=== PATIENT | female | born 1990 | race Caucasian/White ===

== ENCOUNTER 2018-02-01 17:26 | Emergency (ER) | payer OTHER ==
[2018-02-01 17:36] VITALS: TEMP 98.7
--- NOTE | 2018-02-01 19:07 | C.PDOC ---
History Of Present Illness 27 year old female patient presents to the emergency room c/o left ear pain. Patient denies rash, fever, chills, vomiting, diarrhea, nausea, eye pain and headache. Time Seen by Provider: 02/01/18 18:18 Chief Complaint (Nursing): ENT Problem History Per: Patient History/Exam Limitations: None Onset/Duration Of Symptoms: Days Current Symptoms Are (Timing): Still Present Past Medical History Reviewed: Historical Data, Nursing Documentation, Vital Signs Vital Signs: Last Vital Signs Temp 98.7 F 02/01/18 17:32 Pulse 66 02/01/18 17:32 Resp 18 02/01/18 17:32 BP 138/86 02/01/18 17:32 Pulse Ox 97 02/01/18 17:32 Family History: States: No Known Family Hx - Social History Hx Alcohol Use: No Hx Substance Use: No - Immunization History Hx Tetanus Toxoid Vaccination: No Hx Influenza Vaccination: No Hx Pneumococcal Vaccination: No Review Of Systems Except As Marked, All Systems Reviewed And Found Negative. Constitutional: Negative for: Fever, Chills Eyes: Negative for: Pain ENT: Positive for: Ear Pain (left ) Gastrointestinal: Negative for: Nausea, Vomiting, Diarrhea Skin: Negative for: Rash Neurological: Negative for: Headache Physical Exam - Physical Exam Appears: Non-toxic, No Acute Distress Skin: Warm, Dry, No Rash Head: Atraumatic, Normacephalic Eye(s): bilateral: Normal Inspection, PERRL, EOMI Ear(s): Bilateral: Normal Oral Mucosa: Moist Throat: Normal, No Erythema, No Exudate Neck: Normal ROM, Supple Lymphatic: Normal Exam Chest: Symmetrical Cardiovascular: Rhythm Regular, No Friction Rub, No Murmur Respiratory: Normal Breath Sounds, No Rales, No Rhonchi, No Stridor, No Wheezing Gastrointestinal/Abdominal: Bowel Sounds (active), Soft, No Tenderness Back: Normal Inspection, No CVA Tenderness Extremity: Normal ROM, No Swelling Neurological/Psych: Oriented x3, Normal Speech Gait: Steady ED Course And Treatment O2 Sat by Pulse Oximetry: 97 (RA) Pulse Ox Interpretation: Normal Medical Decision Making Medical Decision Making: Plans: -- [place] -- Ibuprofen -- prednisone Disposition - Disposition Referrals: [facility] at [facility] [Outside] Disposition: HOME/ ROUTINE Disposition Time: 19:30 Condition: STABLE Additional Instructions: Follow up with the medical doctor within 1-2 days. Return if worsened. Prescriptions: Loratadine [Claritin] 10 mg PO DAILY #10 tab Neomycin/Polymyxin/Hydrocortis [Cortisporin Otic Susp] 3 drop TOP TID #1 bottle predniSONE [Prednisone] 20 mg PO BID #10 tab Instructions: Viral Upper Respiratory Infection, Adult (DC) Forms: [employer] (Sinhala) - Clinical Impression Clinical Impression: Upper respiratory infection - PA / COLLECTIONS MANAGER / Resident Statement MD/DO has reviewed & agrees with the documentation as recorded. - Scribe Statement The provider has reviewed the documentation as recorded by the Colin Engel Do All medical record entries made by the Sandraibe were at my direction and personally dictated by me. I have reviewed the chart and agree that the record accurately reflects my personal performance of the history, physical exam, medical decision making, and the department course for this patient. I have also personally directed, reviewed, and agree with the discharge instructions and disposition.
[2018-02-01 19:40] VITALS: BP 125/85; PULSE 72; RESP 16
[2018-02-01 21:07] VITALS: O2SAT 97
== END 2018-02-01 19:39 | disposition home or self-care (01) ==
LOC: C.ER 17:26
DX: J06.9 Acute upper respiratory infection, unspecified (principal)

== ENCOUNTER 2018-04-03 09:58 | Emergency (ER) | payer OTHER ==
--- NOTE | 2018-04-03 11:43 | CT ---
Date of service: 04/03/2018 PROCEDURE: CT HEAD WITHOUT CONTRAST. HISTORY: possible mastoiditis COMPARISON: None available TECHNIQUE: Axial computed tomography images were obtained through the head/brain without intravenous contrast. Radiation dose: Total exam DLP = 1093.5 mGy-cm. This CT exam was performed using one or more of the following dose reduction techniques: Automated exposure control, adjustment of the mA and/or kV according to patient size, and/or use of iterative reconstruction technique. FINDINGS: HEMORRHAGE: No intracranial hemorrhage. BRAIN: No mass effect or edema. No atrophy or chronic microvascular ischemic changes. VENTRICLES: No hydrocephalus. CALVARIUM: Unremarkable. PARANASAL SINUSES: Partial visualization of the paranasal sinuses demonstrates marked mucosal thickening of the ethmoid air cells, the right maxillary sinus, the sphenoid sinuses, and the right frontal sinus. MASTOID AIR CELLS: Fluid is noted within the left mastoid air cells. Incompletely imaged right mastoid air cells appear clear. OTHER FINDINGS: None. IMPRESSION: No acute intracranial pathology identified. Fluid is noted within the left mastoid air cells; correlate for mastoiditis. Incompletely imaged right mastoid air cells appear clear. Partial visualization of the paranasal sinuses demonstrates marked mucosal thickening of the ethmoid air cells, the right maxillary sinus, the sphenoid sinuses, and the right frontal sinus.
--- NOTE | 2018-04-03 11:57 | C.PDOC ---
History Of Present Illness 28 y/o female presents to the ED complaining of left ear pain associated with yellow drainage since yesterday. For the last 7 days patient has had a cough, runny nose, and nasal discharge. No fevers. No neck stiffness. Yesterday she woke up with severe ear pain and drainage. She tried taking Motrin without any relief. Time Seen by Provider: 04/03/18 10:04 Chief Complaint (Nursing): ENT Problem History Per: Patient History/Exam Limitations: None Onset/Duration Of Symptoms: Days (2) Current Symptoms Are (Timing): Still Present Quality (Ear): Pain W/Touch, Discharge Symptoms Have Been: Continuous Past Medical History Reviewed: Historical Data, Nursing Documentation, Vital Signs Vital Signs: Last Vital Signs Temp 98.8 F 04/03/18 10:00 Pulse 101 H 04/03/18 10:00 Resp 20 04/03/18 10:00 BP 125/82 04/03/18 10:00 Pulse Ox 96 04/03/18 10:00 Surgical History: No Surg Hx Family History: States: No Known Family Hx - Social History Hx Tobacco Use: No Hx Alcohol Use: No Hx Substance Use: No - Immunization History Hx Tetanus Toxoid Vaccination: No Hx Influenza Vaccination: No Hx Pneumococcal Vaccination: No Review Of Systems Constitutional: Negative for: Fever, Chills Eyes: Negative for: Vision Change ENT: Positive for: Ear Pain, Ear Discharge, Nose Congestion Cardiovascular: Negative for: Chest Pain Respiratory: Positive for: Cough. Negative for: Shortness of Breath Gastrointestinal: Negative for: Nausea, Vomiting, Diarrhea Musculoskeletal: Negative for: Back Pain Skin: Negative for: Rash Neurological: Negative for: Weakness, Numbness, Headache, Dizziness Physical Exam - Physical Exam Appears: Non-toxic, No Acute Distress Skin: Normal Color, Warm, No Rash, Other (Appears flushed) Head: Atraumatic, Normacephalic, Tenderness (on palpation of sinuses) Eye(s): bilateral: Normal Inspection (with increased tearing), PERRL, EOMI Ear(s): Left: Other (Left ear canal is edematous with discharge, and likely TM perforation, (+) mastoid tenderness), Right: Normal Nose: Discharge (Moderate nasal congestion) Throat: Normal, No Erythema, No Exudate Neck: Normal ROM, Supple Chest: Symmetrical Cardiovascular: Rhythm Regular, No Murmur Respiratory: No Rales, No Rhonchi, No Wheezing, Other (Lungs clear bilaterally) Extremity: Bilateral: Atraumatic, Normal ROM (x 4) Neurological/Psych: Oriented x3, Normal Speech, Normal Cranial Nerves, Other (No focal deficits) ED Course And Treatment O2 Sat by Pulse Oximetry: 96 (RA) Pulse Ox Interpretation: Normal - CT Scan/US Head CT Other Rad Studies (CT/US): Read By Radiologist, Radiology Report Reviewed CT/US Interpretation: Accession No. : [id number]. Patient Name / ID : HARRISON [id number] / [id number]. Exam Date : 04/03/2018 11:20:21 ( Approved ). Study Comment : Sex / Age : F / 28Y. Creator : Fatimah Snell. Dictator : Jacqueline Montiel MD. Road Sign Installer : Professor Of Biostatistics : Jacqueline Montiel MD. Approver2 : Report Date : 04/03/2018 11:26:59. My Comment : . Date of service: 04/03/2018. PROCEDURE: CT HEAD WITHOUT CONTRAST. HISTORY: possible mastoiditis. COMPARISON: None available. TECHNIQUE: Axial computed tomography images were obtained through the head/brain without intravenous contrast. Radiation dose: Total exam DLP = 1093.5 mGy-cm. This CT exam was performed using one or more of the following dose reduction techniques: Automated exposure control, adjustment of the mA and/or kV according to patient size, and/or use of iterative reconstruction technique. FINDINGS: HEMORRHAGE: No intracranial hemorrhage. BRAIN: No mass effect or edema. No atrophy or chronic microvascular ischemic changes. VENTRICLES: No hydrocephalus. CALVARIUM: Unremarkable. PARANASAL SINUSES: Partial visualization of the paranasal sinuses demonstrates marked mucosal thickening of the ethmoid air cells, the right maxillary sinus, the sphenoid sinuses, and the right frontal sinus. MASTOID AIR CELLS: Fluid is noted within the left mastoid air cells. Incompletely imaged right mastoid air cells appear clear. OTHER FINDINGS: None. IMPRESSION: No acute intracranial pathology identified. Fluid is noted within the left mastoid air cells; correlate for mastoiditis. Incompletely imaged right mastoid air cells appear clear. Partial visualization of the paranasal sinuses demonstrates marked mucosal thickening of the ethmoid air cells, the right maxillary sinus, the sphenoid sinuses, and the right frontal sinus. Medical Decision Making Medical Decision Making: Impression: Left ear pain/drainage, Cough, r/o mastoiditis Plan: - Tramadol and Motrin given for pain - Pending CT Head CT reviewed, shows left mastoiditis. Will treat patient with antibiotics. Disposition Counseled Patient/Family Regarding: Studies Performed, Diagnosis, Need For Followup, Rx Given - Disposition Referrals: Oliverio Corley MD [Staff Provider] - [facility] at [facility] [Outside] Disposition: HOME/ ROUTINE Disposition Time: 12:45 Condition: STABLE Prescriptions: Amoxicillin/Clavulanate [Augmentin 875 MG-125 MG] 1 tab PO BID #14 tab Ibuprofen [Motrin] 600 mg PO TID #15 tab traMADol/Acetaminophen [Ultracet 37.5/325 mg] 1 tab PO TID PRN #15 tab PRN Reason: pain Instructions: Ear Infections (Otitis Media) (DC) Forms: [employer] (Indonesian) Print Language: GREENLANDIC - POA Present On Arrival: None - Clinical Impression Clinical Impression: Upper respiratory infection, Otitis media, Perforated tympanic membrane - Scribe Statement The provider has reviewed the documentation as recorded by the Colin Viera Provider Attestation: All medical record entries made by the Colin were at my direction and personally dictated by me. I have reviewed the chart and agree that the record accurately reflects my personal performance of the history, physical exam, medical decision making, and the department course for this patient. I have also personally directed, reviewed, and agree with the discharge instructions and disposition.
[2018-04-03 12:09] VITALS: BP 102/70; PULSE 80; RESP 18; TEMP 98.7
[2018-04-03 12:48] VITALS: O2SAT 96
== END 2018-04-03 12:52 | disposition home or self-care (01) ==
LOC: C.ER 09:58
DX: J06.9 Acute upper respiratory infection, unspecified (principal); H66.92 Otitis media, unspecified, left ear; H72.92 Unspecified perforation of tympanic membrane, left ear

== ENCOUNTER 2018-04-04 11:38 | Observation (INO) | payer OTHER ==
[2018-04-04 11:51] VITALS: BMI 29.0
[2018-04-04] MEDS ORDERED: Sodium Chloride 0.9% 1,000 ML IV ONE (13:09)
--- NOTE | 2018-04-04 13:47 | C.PDOC ---
History Of Present Illness 28 y/o female sent to ED by Dr Corley for further evaluation of ear pain. pt seen by him yesterday and started on amoxicilin, last took motrin 630 am. She reports persistent pain despite taking the antibiotics. No other complaints. Time Seen by Provider: 04/04/18 11:58 Chief Complaint (Nursing): ENT Problem History Per: Patient History/Exam Limitations: no limitations Current Symptoms Are (Timing): Still Present Past Medical History Reviewed: Historical Data, Nursing Documentation, Vital Signs Vital Signs: Last Vital Signs Temp 98.3 F 04/04/18 11:51 Pulse 84 04/04/18 11:51 Resp 18 04/04/18 11:51 BP 102/77 04/04/18 11:51 Pulse Ox 98 04/04/18 11:51 - Medical History PMH: No Chronic Diseases Surgical History: No Surg Hx Family History: States: Unknown Family Hx - Social History Hx Tobacco Use: No Hx Alcohol Use: No Hx Substance Use: No - Immunization History Hx Tetanus Toxoid Vaccination: No Hx Influenza Vaccination: No Hx Pneumococcal Vaccination: No Review Of Systems Constitutional: Negative for: Fever, Chills ENT: Positive for: Ear Pain Cardiovascular: Negative for: Chest Pain Respiratory: Negative for: Cough, Shortness of Breath Gastrointestinal: Negative for: Nausea, Vomiting Musculoskeletal: Negative for: Neck Pain Skin: Negative for: Rash Neurological: Negative for: Headache, Dizziness Physical Exam - Physical Exam Appears: Non-toxic, No Acute Distress Skin: No Rash Head: Atraumatic, Normacephalic Eye(s): right: Normal Inspection, left: Other (Exquisitely tender around external left ear; Left TM appears erythematous, with left mastoid tenderness, left submandibular tenderness; limited exam as patient is pushing examiner away) Oral Mucosa: Moist Throat: Normal (Pharynx is clear), No Erythema, No Drooling Neck: Supple Chest: Symmetrical Cardiovascular: Rhythm Regular, No Murmur Respiratory: No Rales, No Rhonchi, No Wheezing, Other (Lungs clear bilaterally) Extremity: Normal ROM (x 4), No Deformity, No Swelling Neurological/Psych: Oriented x3, Normal Speech, Normal Cognition ED Course And Treatment - Laboratory Results Result Diagrams: 04/04/18 13:49 04/04/18 13:49 O2 Sat by Pulse Oximetry: 98 (RA) Pulse Ox Interpretation: Normal - CT Scan/US CT TEMPORAL BONES Other Rad Studies (CT/US): Read By Radiologist, Radiology Report Reviewed CT/US Interpretation: IMPRESSION: Moderate destructive changes are identified at the left mastoid air cell complex mid and inferior levels. There near complete opacification of the left middle ear cavity without bony destruction. The overall pattern compatible otomastoiditis. Cholesteatoma or other destructive process including mastoiditis at the left mastoids is not excluded. Follow-up MRI with and without contrast is advised for added characterization. Unremarkable right mastoid air cell complex. Medical Decision Making Medical Decision Making: discussed with Dr Butler, will admit to her service. Disposition Discussed With .: Sue Butler Doctor Will See Patient In The: Hospital - Disposition Disposition: HOSPITALIZED Disposition Time: 15:43 - Clinical Impression Clinical Impression: Otitis media of left ear - PA / COATER OPERATOR / Resident Statement MD/DO has reviewed & agrees with the documentation as recorded. - Scribe Statement The provider has reviewed the documentation as recorded by the Colin Viera All medical record entries made by the Colin were at my direction and personal ly dictated by me. I have reviewed the chart and agree that the record accurately reflects my personal performance of the history, physical exam, medical decision making, and the department course for this patient. I have also personally directed, reviewed, and agree with the discharge instructions and disposition.
[2018-04-04 13:52] LABS: BASO % 0.2 % (0.0-2.0); EOS % 0.4 % (0.0-4.0); HEMOGLOBIN 14.3 g/dL (11.0-16.0); LYMPH % 15.6 % (20.0-40.0); MEAN CELL VOLUME 94.9 fL (81.0-99.0); MEAN CORPUSCULAR HEMOGLOBIN 32.5 pg (27.0-31.0); MEAN CORPUSCULAR HGB CONC 34.3 g/dL (33.0-37.0); MEAN PLATELET VOLUME 10.2 fL (7.2-11.7); MONO # 1.8 K/uL (0.0-0.8); MONO % 13.7 % (0.0-10.0); NEUT % 70.1 % (50.0-75.0); NRBC % 0.1 % (0.0-2.0); RBC 4.39 Mil/uL (3.80-5.20); RED CELL DISTRIBUTION WIDTH 13.1 % (11.5-14.5); WHITE BLOOD COUNT 12.8 K/uL (4.8-10.8)
[2018-04-04] MEDS ORDERED: Sodium Chloride 0.9% 1,000 ML ONE (13:54)
[2018-04-04 14:08] LABS: ALB/GLOB RATIO 1.4 (1.0-2.1); ALBUMIN 4.6 g/dL (3.5-5.0); ALT/SGPT 39 U/L (9-52); AST/SGOT 51 U/L (14-36); BLOOD UREA NITROGEN 7 mg/dL (7-17); CALCIUM 9.2 mg/dl (8.6-10.4); GFR NON-AFRICAN AMERICAN > 60
[2018-04-04 14:10] LABS: SQUAMOUS EPITHIAL 6 /hpf (0-5); URINE BACTERIA OCC (<OCC); URINE BILIRUBIN NEGATIVE (NEGATIVE); URINE BLOOD 1+ (NEGATIVE); URINE CLARITY Hazy (Clear); URINE COLOR Amber (YELLOW); URINE GLUCOSE (UA) NORMAL (Normal); URINE LEUKOCYTE ESTERASE NEG Leu/uL (Negative); URINE PROTEIN 1+ mg/dL (NEGATIVE)
[2018-04-04] MEDS ORDERED: Piperacillin/Tazobact 3.375 GM in Sodium Chloride 100 ML IVPB STA (14:29)
[2018-04-04] MEDS ORDERED: Piperacillin/Tazobact 3.375 gm 100 ML IVPB ONE (14:38)
--- NOTE | 2018-04-04 15:46 | CT ---
Date of service: 04/04/2018 PROCEDURE: CT OF THE TEMPORAL BONES WITHOUT CONTRAST HISTORY: left mastoid tenderness COMPARISON: None available. TECHNIQUE: High resolution axial images of the temporal bones were obtained. Coronal and sagittal reformats were generated. Radiation dose: Total exam DLP = 656.29 mGy-cm. This CT exam was performed using one or more of the following dose reduction techniques: Automated exposure control, adjustment of the mA and/or kV according to patient size, and/or use of iterative reconstruction technique. FINDINGS: RIGHT TEMPORAL BONE: RIGHT MIDDLE EAR: Normal appearing ossicular chain, aeration and development. No soft tissue or fluid collection. The scutum appears intact. The oval and round window niches appear intact. RIGHT INNER EAR: Cochlea: Normal. Semicircular canals: Normal. RIGHT MASTOID AIR CELLS: Normal. RIGHT INTERNAL AUDITORY CANAL: Normal in course, caliber, contour and development. No sclerotic or erosive changes related. RIGHT EXTERNAL AUDITORY CANAL: Normal in course, caliber, contour, development and aeration. RIGHT VESTIBULAR AND COCHLEAR AQUEDUCT: Normal. OTHER FINDINGS: None. LEFT TEMPORAL BONE: LEFT MIDDLE EAR: Mildly ossicular chain appears intact as well as the scutum, there is abnormal opacification of the lumen of the middle ear cavity which is nearly completely opacified. No overt pattern to suggest cholesteatoma. Soft tissue is not excluded within the normally aerated middle ear cavity nevertheless. Fluid is clearly present in some areas. LEFT INNER EAR: Cochlea: Normal. Semicircular canals: Normal. LEFT MASTOID AIR CELLS: Multifocal opacification is appreciated primarily mid inferior mastoid air cells with some air cells confluent suggestive of erosive changes. Mastoiditis or even cholesteatoma are not excluded. MRI with without contrast can be utilized for added characterization of the middle ear cavity and affected mastoid air cells. No overt reactive changes seen posterior and lateral to the mastoid air cells within the local extracranial soft tissues. LEFT INTERNAL AUDITORY CANAL: Normal. LEFT EXTERNAL AUDITORY CANAL: Normal. LEFT VESTIBULAR AND COCHLEAR AQUEDUCTS: Normal. OTHER FINDINGS: None. IMPRESSION: Moderate destructive changes are identified at the left mastoid air cell complex mid and inferior levels. There near complete opacification of the left middle ear cavity without bony destruction. The overall pattern compatible otomastoiditis. Cholesteatoma or other destructive process including mastoiditis at the left mastoids is not excluded. Follow-up MRI with and without contrast is advised for added characterization. Unremarkable right mastoid air cell complex.
--- NOTE | 2018-04-04 16:53 | CP.PCM.HP ---
History of Present Illness - History of Present Illness History of Present Illness: History and physical for Hospitalist service (Dr. Butler) HPI: Patient is a 28 year old female who presents for 3 to 4 day history of left ear pain with yellow, bloody purulent drainage with subjective fevers, hearing loss and buzzing in her left ear. She states that for the past 3 to 4 days, she has pain when she chews and bites down and has only been drinking liquids. She has not had any food in 3 days. She states she felt nauseated when she tried to eatand 3 episodes of nonbloody nonbilious vomiting 3 days ago, with no episodes since. Patient was seen in the ED for similar complaints yesterday and was discharged on Amoxicillin. CT head from yesterday 04/03/18 revealed no intracranial pathology, fluid in left mastoid air cells. She was seen by ENT Dr. Corley today who sent her in for tympanostomy. She denies headache, dizziness, blurry vision, chest pain, shortness of breath, abdominal pain, diarrhea, constipation, dysuria, leg swelling or leg pain. PMH: none PSH: none Home meds: Amoxicillin Allergies: NKDA Family hx: Father had RI at age 38 Social hx: denies smoking, alcohol or drug use. Patient is from [facility]. Immunizations up to date as per patient Full code PMD: none Present on Admission - Present on Admission Any Indicators Present on Admission: No Review of Systems - Constitutional Constitutional: Fever. absent: Chills, Headache - EENT Eyes: absent: Blurred Vision, Change in Vision Ears: Decreased Hearing, Ear Pain, Abnormal Hearing. absent: Dizziness Nose/Mouth/Throat: absent: Epistaxis, Change in Voice, Hoarsness, Sore Throat - Cardiovascular Cardiovascular: absent: Chest Pain, Dyspnea, Lightheadedness, Palpitations - Respiratory Respiratory: absent: Cough, Dyspnea, Chest Congestion - Gastrointestinal Gastrointestinal: Vomiting. absent: Diarrhea, Nausea - Genitourinary Genitourinary: absent: Difficulty Urinating, Dysuria - Musculoskeletal Musculoskeletal: absent: Back Pain, Numbness, Stiffness - Neurological Neurological: absent: Confusion, Numbness, Headaches, Paresthesias - Psychiatric Psychiatric: absent: Anxiety, Depression Past Patient History - Past Social History Smoking Status: Never Smoked - PSYCHIATRIC Hx Substance Use: No - SURGICAL HISTORY Hx Surgeries: No - ANESTHESIA Hx Anesthesia: No Meds Allergies/Adverse Reactions: Allergies Allergy/AdvReac Type Severity Reaction Status Date / Time No Known Allergies Allergy Verified 04/04/18 11:50 Physical Exam - Constitutional Appears: Well, No Acute Distress - Head Exam Head Exam: ATRAUMATIC, NORMOCEPHALIC - Eye Exam Eye Exam: EOMI, PERRL - ENT Exam ENT Exam: Mucous Membranes Moist Additional comments: Left ear: Yellow drainage from ear canal with marked tenderness on left tragus and left mastoid. Marked erythema swelling inside ear canal. Right ear: no drainage, no tenderness. Unable to visualize throat clearly, since pain with opening mouth - Expanded ENT Exam Expanded Ear exam: External Canal Tenderness TM/Canal Exam: Bulging: Left, Canal Discharge: Left, Canal Tenderness: Left, Effusion: Left, Erythema: Left, Mastoid Tenderness: Left Mouth exam: tongue normal. absent: drooling, dry mucosa, laceration - Neck Exam Neck exam: Positive for: Full Rom. Negative for: Tenderness, Thyromegaly - Respiratory Exam Respiratory Exam: Clear to Auscultation Bilateral, NORMAL BREATHING PATTERN. absent: Rales, Rhonchi, Wheezes, Respiratory Distress, Stridor - Cardiovascular Exam Cardiovascular Exam: REGULAR RHYTHM, +S1, +S2. absent: Gallop, Rubs, Systolic Murmur - GI/Abdominal Exam GI & Abdominal Exam: Normal Bowel Sounds, Soft. absent: Distended, Firm, Guarding, Tenderness - Extremities Exam Extremities exam: Positive for: pedal pulses present. Negative for: calf tenderness, pedal edema - Back Exam Back exam: absent: CVA tenderness (L), CVA tenderness (R) - Neurological Exam Neurological exam: Alert, Oriented x3 - Skin Skin Exam: Dry, Intact, Warm Results - Vital Signs Recent Vital Signs: Last Vital Signs Temp 99.1 F 04/04/18 15:55 Pulse 88 04/04/18 15:55 Resp 20 04/04/18 15:55 BP 117/70 04/04/18 15:55 Pulse Ox 98 04/04/18 16:31 - Labs Result Diagrams: 04/04/18 13:49 04/04/18 13:49 Labs: Laboratory Results - last 24 hr 04/04/18 04/04/18 04/04/18 13:49 13:49 13:59 WBC 12.8 H RBC 4.39 Hgb 14.3 Hct 41.7 MCV 94.9 MCH 32.5 H MCHC 34.3 RDW 13.1 Plt Count 286 MPV 10.2 Neut % (Auto) 70.1 Lymph % (Auto) 15.6 L [place] % (Auto) 13.7 H Eos % (Auto) 0.4 Baso % (Auto) 0.2 Neut # (Auto) 9.0 H Lymph # (Auto) 2.0 [place] # (Auto) 1.8 H Eos # (Auto) 0.0 Baso # (Auto) 0.0 Sodium 138 Potassium 3.6 Chloride 101 Carbon Dioxide 27 Anion Gap 14 BUN 7 Creatinine 0.7 Est GFR ( Amer) > 60 Est GFR (Non-Af Amer) > 60 Random Glucose 90 Calcium 9.2 Total Bilirubin 0.8 AST 51 H ALT 39 Alkaline Phosphatase 61 Total Protein 8.1 Albumin 4.6 Globulin 3.4 Albumin/Globulin Ratio 1.4 Urine Color Melina Urine Clarity Hazy Urine pH 5.0 Ur Specific Epps 1.030 Urine Protein 1+ H Urine Glucose (UA) Normal Urine Ketones 1+ H Urine Blood 1+ H Urine Nitrate Negative Urine Bilirubin Negative Urine Urobilinogen 2.0 H Ur Leukocyte Esterase Neg Urine WBC (Auto) 12 H Urine RBC (Auto) 7 H Ur Squamous Epith Cells 6 H Urine Bacteria Occ H Assessment & Plan - Assessment and Plan (Free Text) Assessment: 28 year old female who presents for left ear purulent drainage, consistent with otitis media/mastoiditis. Plan for tympanostomy with Dr. Corley tomorrow. Plan: Otitis media/Mastoiditis f/u EKG, CXR ID Dr. Vigil consulted, help appreciated Received Zosyn in ED Blood cultures, urine culture pending Continue Zosyn 3.375g IV Q6 f/u A1c, coags ENT Dr. Corley on board Keep NPO for tympanostomywith ENT Dr. Corley CT Internal auditory canal: moderate destructive changes at left mastoid air cell complex mid and inferior levels. Near complete opacification of left middle ear cavity without bony destructive changes. Otomastoiditis. As per Dr. Corley, no need for further imaging with MRI at this time. Recommmended Decadron 10mg IV x1 Decadron 10mg IVx1 given Febrile to 100.1 White count 12.8 Zosyn 3.375g Q6 NS IV fluids @ 100cc/hr IV NPO after midnight Abnormal UA UA 1+ blood, 1+ ketones, neg nitrates, neg LEs f/u UDS, urine culture f/u A1c Prophylaxis SCDs Heparin held for surgery tomorrow Keep NPO after midnight Case discussed with Dr. Luke Steven, PGY1
[2018-04-04] MEDS ORDERED: Dexamethasone 4 mg/1 ml IVP ONE ×2 (17:19→18:45)
[2018-04-04] MEDS: Sodium Chloride 0.9% 1,000 ML IV SCH (17:52)
[2018-04-04] MEDS: Piperacill/Tazo 3.375gm in Dex 3.375 GM/50 ML BAG IVPB SCH (19:23)
--- NOTE | 2018-04-04 19:33 | CP.PCM.CON ---
History of Present Illness - History of Present Illness History of Present Illness: 28 year old female who presents for 3 to 4 day history of left ear pain with yellow, bloody purulent drainage with subjective fevers, hearing loss and buzzing in her left ear. Patient was seen in the ED for similar complaints yesterday and was discharged on Amoxicillin. CT head from yesterday 04/03/18 revealed no intracranial pathology, fluid in left mastoid air cells. She was seen by ENT Dr. Corley today who sent her in for tympanostomy. ID consulted for antibiotic managment PMH: none PSH: none Allergies: NKDA Family hx: Father had [place] at age 38 Social hx: neg Review of Systems - Review of Systems All systems: reviewed and no additional remarkable complaints except - Constitutional Constitutional: Chills, Fever, Malaise - EENT Eyes: absent: Blind Spots, Blurred Vision, Change in Vision, Decreased Night Vision, Diplopia, Discharge, Dry Eye, Exophthalmos, Floaters, Irritation, Itchy Eyes, Loss of Peripheral Vision, Pain, Photophobia, Requires Corrective Lenses, Sees Flashes, Spots in Vision, Tunnel Vision, Other Visual Disturbances, Loss of Vision, Other Ears: As Per HPI Nose/Mouth/Throat: absent: As Per HPI, Epistaxis, Nasal Congestion, Nasal Discharge, Nasal Obstruction, Nasal Trauma, Nose Pain, Post Nasal Drip, Sinus Pa in, Sinus Pressure, Bleeding Gums, Change in Voice, Dental Pain, Dry Mouth, Dysphagia, Halitosis, Hoarsness, Lip Swelling, Mouth Lesions, Mouth Pain, Odynophagia, Sore Throat, Throat Swelling, Tongue Swelling, Facial Pain, Neck Pain, Neck Mass, Other - Breasts Breasts: absent: As Per HPI, Change in Shape, Mass, Pain, Nipple Discharge, Nipple Inversion, Skin Changes, Swelling, Other - Cardiovascular Cardiovascular: absent: As Per HPI, Acrocyanosis, Chest Pain, Chest Pain at Rest, Chest Pain with Activity, Claudication, Diaphoresis, Dyspnea, Dyspnea on Exertion, Edema, Irregular Heart Rhythm, Pain Radiating to Arm/Neck/Jaw, Leg Edema, Leg Ulcers, Lightheadedness, Orthopnea, Palpitations, Paroxysmal Nocturnal Dyspnea, Pedal Edema, Radiating Pain, Rapid Heart Rate, Slow Heart Rate, Syncope, Other - Respiratory Respiratory: absent: As Per HPI, Cough, Dyspnea, Hemoptysis, Dyspnea on Exertion, Wheezing, Snoring, Stridor, Pain on Inspiration, Chest Congestion, Excessive Mucous Production, Change in Mucous Color, Pain with Coughing, Other - Gastrointestinal Gastrointestinal: absent: As Per HPI, Abdominal Pain, Belching, Bloating, Change in Bowel Habits, Change in Stool Character, Coffee Ground Emesis, Constipation, Cramping, Diarrhea, Dyspepsia, Dysphagia, Early Satiety, Excessive Flatus, Fecal Incontinence, Heartburn, Hematemesis, Hematochezia, Loose Stools, Melena, Nausea, Odynophagia, Temesmus, Vomiting, Other - Genitourinary Genitourinary: absent: As Per HPI, Change in Urinary Stream, Difficulty Urinating, Dysuria, Flank Pain, Hematuria, Pyuria, Nocturia, Urinary Incontinence, Urinary Frequency, Urinary Hesitance, Urinary Urgency, Voiding Freq/Small Amts, Freq UTI, Hx Renal/Bladder Calculi, Hx /Renal Surgery, Bladder Distension, Other - Reproductive: Female Reproductive:Female: absent: As Per HPI, Amenorrhea, Amenorrhea/ Control, Currently Menstual, Cycle <21 Days, Cycle >35 Days, Cycle Variable, Menses 1-7 Days, Menses >/= 8 Days, Menses Variable, Cycle > 4 Weeks Between, No Menses for 6 Months, Heavy Menses, Light Menses, Normal Menses, Spotting Between Cycles, S/P Hysterectomy, Menopausal, Post Menopausal, Premenarche, Abnormal Vaginal Bleeding, Dysmenorrhea, Dyspareunia, Genital Lesions, Genital Pruritis, Pelvic Pain, Prolapse Symptoms, Sexual Dysfunction, Vaginal Discharge, Vaginal Dryness, Vaginal Odor, Vaginal Pruritis, Other - Menstruation Menstruation: absent: As Per HPI, Amenorrhea, Amenorrhea/ Control, Currently Menstual, Cycle <21 Days, Cycle >35 Days, Cycle Variable, Menses 1-7 Days, Menses >/= 8 Days, Menses Variable, Cycle > 4 Weeks Between, No Menses for 6 Months, Heavy Menses, Light Menses, Normal Menses, Spotting Between Cycles, S/P Hysterectomy, Menopausal, Post Menopausal, Premenarche, Abnormal Vaginal Bleeding, Dysmenorrhea, Other - Musculoskeletal Musculoskeletal: absent: As Per HPI, Abnormal Gait, Arthralgias, Atrophy, Back Pain, Deformity, Joint Swelling, Limited Range of Motion, Loss of Height, Muscle Cramps, Muscle Weakness, Myalgias, Neck Pain, Numbness, Radiating Pain into Limb, Stiffness, Tingling, Other - Integumentary Integumentary: absent: As Per HPI, Acne, Alopecia, Bleeding Lesions, Change in Hair, Change in Nails, Change in Pigmentation, Changing Lesions, Dry Skin, Erythema, Furuncle, Hirsutism, Lesions, New Lesions, Non-Healing Lesions, Photosensitivity, Pruritus, Rash, Skin Pain, Skin Ulcer, Sores, Striae, Swelling, Unusual Bruising, Wounds, Jaundice, Other - Neurological Neurological: absent: As Per HPI, Abnormal Gait, Abnormal Hearing, Abnormal Movements, Abnormal Speech, Behavioral Changes, Burning Sensations, Confusion, Convulsions, Disequilibrium, Dizziness, Numbness, Focal Weakness, Frequent F alls, Headaches, Lack of Coordination, Loss of Vision, Memory Loss, Paresthesias, Radicular Pain, Restless Legs, Sensory Deficit, Syncope, Tingling, Tremor, Vertigo, Weakness, Other Visual Disturbances, Other - Psychiatric Psychiatric: absent: As Per HPI, Abnormal Sleep Pattern, Anhedonia, Anxiety, Auditory Hallucinations, Behavioral Changes, Change in Appetite, Change in Libido, Confusion, Depression, Difficulty Concentrating, Hallucinations, Homicidal Ideation, Hopelessness, Irritability, Memory Loss, Mood Swings, Panic Attacks, Paranoia, Suicidal Ideation, Visual Hallucinations, Tactile Hallucinations, Other - Endocrine Endocrine: absent: As Per HPI, Change in Body Appearance, Change in Libido, Cold Intolorance, Deepening of Voice, Excessive Sweating, Fatigue, Flushing, Heat Intolorance, Increase in Ring/Shoe/Hat Size, Palpitations, Polydipsia, Polyphagia, Polyuria, Other - Hematologic/Lymphatic Hematologic: absent: As Per HPI, Easy Bleeding, Easy Bruising, Lymphadenopathy, Other Past Patient History - Past Social History Smoking Status: Never Smoked - PSYCHIATRIC Hx Substance Use: No - SURGICAL HISTORY Hx Surgeries: No - ANESTHESIA Hx Anesthesia: No Meds Allergies/Adverse Reactions: Allergies Allergy/AdvReac Type Severity Reaction Status Date / Time No Known Allergies Allergy Verified 04/04/18 11:50 - Medications Medications: Current Medications Acetaminophen (Tylenol 325mg Tab) 650 mg PO Q6 PRN PRN Reason: Fever >100.4 F Sodium Chloride (Sodium Chloride 0.9%) 1,000 mls @ 100 mls/hr IV .Q10H ONE Stop: 04/04/18 23:08 Last Admin: 04/04/18 13:49 Dose: 100 mls/hr Sodium Chloride (Sodium Chloride 0.9%) 1,000 mls @ 100 mls/hr IV .Q10H [facility] Last Admin: 04/04/18 17:52 Dose: Not Given Piperacillin Sod/Tazobactam Sod (Zosyn 3.375 Gm Iv Premix) 3.375 gm in 50 mls @ 100 mls/hr IVPB Q6H [facility]; Protocol Last Admin: 04/04/18 19:23 Dose: 100 mls/hr Ketorolac Tromethamine (Toradol) 15 mg IVP Q6 [facility] Physical Exam - Constitutional Appears: Non-toxic, No Acute Distress - Head Exam Head Exam: NORMOCEPHALIC - Eye Exam Eye Exam: absent: Scleral icterus Pupil Exam: NORMAL ACCOMODATION - ENT Exam ENT Exam: Mucous Membranes Dry, Normal Oropharynx. absent: TM's Normal B ilaterally Additional comments: packing left ear / tender + Otitis - Neck Exam Neck exam: Negative for: Lymphadenopathy - Respiratory Exam Respiratory Exam: Decreased Breath Sounds, Clear to Auscultation Bilateral - Cardiovascular Exam Cardiovascular Exam: REGULAR RHYTHM, +S1, +S2 - GI/Abdominal Exam GI & Abdominal Exam: Diminished Bowel Sounds, Soft. absent: Tenderness - Rectal Exam Rectal Exam: Deferred - Exam Exam: NORMAL INSPECTION - Extremities Exam Extremities exam: Negative for: pedal edema - Back Exam Back exam: absent: CVA tenderness (L), CVA tenderness (R), paraspinal tenderness - Neurological Exam Neurological exam: Alert, CN II-XII Intact, Oriented x3, Reflexes Normal - Psychiatric Exam Psychiatric exam: Depressed - Skin Skin Exam: Dry, Intact Results - Vital Signs Recent Vital Signs: Last Vital Signs Temp 99.2 F 04/04/18 16:54 Pulse 83 04/04/18 16:54 Resp 20 04/04/18 16:54 BP 115/77 04/04/18 16:54 Pulse Ox 97 04/04/18 16:54 - Labs Result Diagrams: 04/04/18 13:49 04/04/18 13:49 Labs: Laboratory Results - last 24 hr 02/04/04/18 04/04/18 13:49 13:49 13:59 WBC 12.8 H RBC 4.39 Hgb 14.3 Hct 41.7 MCV 94.9 MCH 32.5 H MCHC 34.3 RDW 13.1 Plt Count 286 MPV 10.2 Neut % (Auto) 70.1 Lymph % (Auto) 15.6 L [place] % (Auto) 13.7 H Eos % (Auto) 0.4 Baso % (Auto) 0.2 Neut # (Auto) 9.0 H Lymph # (Auto) 2.0 [place] # (Auto) 1.8 H Eos # (Auto) 0.0 Baso # (Auto) 0.0 Sodium 138 Potassium 3.6 Chloride 101 Carbon Dioxide 27 Anion Gap 14 BUN 7 Creatinine 0.7 Est GFR ( Amer) > 60 Est GFR (Non-Af Amer) > 60 Random Glucose 90 Calcium 9.2 Total Bilirubin 0.8 AST 51 H ALT 39 Alkaline Phosphatase 61 Total Protein 8.1 Albumin 4.6 Globulin 3.4 Albumin/Globulin Ratio 1.4 Urine Color Melina Urine Clarity Hazy Urine pH 5.0 Ur Specific [place] 1.030 Urine Protein 1+ H Urine Glucose (UA) Normal Urine Ketones 1+ H Urine Blood 1+ H Urine Nitrate Negative Urine Bilirubin Negative Urine Urobilinogen 2.0 H Ur Leukocyte Esterase Neg Urine WBC (Auto) 12 H Urine RBC (Auto) 7 H Ur Squamous Epith Cells 6 H Urine Bacteria Occ H - Impressions Impression: CT Internal auditory canal: moderate destructive changes at left mastoid air cell complex mid and inferior levels. Near complete opacification of left middle ear cavity without bony destructive changes. Otomastoiditis. Assessment & Plan (1) Otitis media of left ear Status: Acute (2) Perforated tympanic membrane Status: Acute (3) Mastoiditis Status: Acute - Assessment and Plan (Free Text) Assessment: acute otitis media/ mastoiditis- likely Strep, H flu, Moraxella start Zosyn check cultures for OR debridement
[2018-04-04 20:10] LABS: INR 1.2; PROTHROMBIN TIME 13.4 SECONDS (9.7-12.2)
[2018-04-04 21:18] LABS: BARBITURATES, UR NEGATIVE (NEGATIVE); BENZODIAZEPINES, UR NEGATIVE (NEGATIVE); OPIATES, UR NEGATIVE (NEGATIVE); PHENCYCLIDINE, UR NEGATIVE (NEGATIVE)
[2018-04-05] MEDS: Piperacill/Tazo 3.375gm in Dex 3.375 GM/50 ML BAG IVPB SCH ×3 (00:09→12:45)
[2018-04-05] MEDS: Sodium Chloride 0.9% 1,000 ML IV SCH (04:00)
[2018-04-05] MEDS ORDERED: Simethicone 80 mg Chewtab PO PRN (07:56)
[2018-04-05 08:46] LABS: BASO % 0.1 % (0.0-2.0); EOS % 0.1 % (0.0-4.0); HEMOGLOBIN 12.7 g/dL (11.0-16.0); LYMPH # 1.7 K/uL (1.0-4.3); LYMPH % 16.9 % (20.0-40.0); MEAN CELL VOLUME 94.6 fL (81.0-99.0); MEAN CORPUSCULAR HEMOGLOBIN 32.6 pg (27.0-31.0); MEAN CORPUSCULAR HGB CONC 34.5 g/dL (33.0-37.0); MEAN PLATELET VOLUME 9.8 fL (7.2-11.7); MONO # 0.9 K/uL (0.0-0.8); MONO % 9.2 % (0.0-10.0); NEUT # 7.5 K/uL (1.8-7.0); NEUT % 73.7 % (50.0-75.0); RBC 3.9 Mil/uL (3.80-5.20); WHITE BLOOD COUNT 10.1 K/uL (4.8-10.8)
[2018-04-05 09:00] LABS: ALB/GLOB RATIO 1.3 (1.0-2.1); ALBUMIN 3.9 g/dL (3.5-5.0); ALT/SGPT 45 U/L (9-52); AST/SGOT 45 U/L (14-36); BLOOD UREA NITROGEN 7 mg/dL (7-17); CALCIUM 8.6 mg/dl (8.6-10.4); GFR NON-AFRICAN AMERICAN > 60
--- NOTE | 2018-04-05 09:38 | CP.PCM.PN ---
Subjective - Date & Time of Evaluation Date of Evaluation: 04/05/18 Time of Evaluation: 09:36 - Subjective Subjective: Florenceandrew Kriscalixto PGY1 Progress Note for Dr. Butler Pt was examined at bedside this morning. She reports improvement in her left ear pain. She denies fever, chills, nausea, vomiting, shortness of breath. She complains of some gas discomfort in her abdomen. Objective - Vital Signs/Intake and Output Vital Signs (last 24 hours): Temp Pulse Resp BP Pulse Ox 97.7 F 67 20 110/73 98 04/05/18 08:00 04/05/18 08:00 04/05/18 08:00 04/05/18 08:00 04/05/18 08:00 Intake and Output: 04/05/18 04/05/18 06:59 18:59 Intake Total 800 Balance 800 - Medications Medications: Current Medications Acetaminophen (Tylenol 325mg Tab) 650 mg PO Q6 PRN PRN Reason: Fever >100.4 F Sodium Chloride (Sodium Chloride 0.9%) 1,000 mls @ 100 mls/hr IV .Q10H [facility] Last Admin: 04/05/18 04:00 Dose: 100 mls/hr Piperacillin Sod/Tazobactam Sod (Zosyn 3.375 Gm Iv Premix) 3.375 gm in 50 mls @ 100 mls/hr IVPB Q6H [facility]; Protocol Last Admin: 04/05/18 06:01 Dose: 100 mls/hr Ketorolac Tromethamine (Toradol) 15 mg IVP Q6 [facility] Last Admin: 04/05/18 06:13 Dose: Not Given Simethicone (Mylicon Chew Tab) 80 mg PO Q6H PRN PRN Reason: GI distress - Labs Labs: 04/05/18 08:23 04/05/18 08:23 PT 13.4 SECONDS (9.7-12.2) H 04/04/18 19:48 INR 1.2 04/04/18 19:48 APTT 28 SECONDS (21-34) 04/04/18 19:48 - Constitutional Appears: Well, No Acute Distress - Head Exam Head Exam: ATRAUMATIC, NORMOCEPHALIC - Eye Exam Eye Exam: Normal appearance, PERRL - ENT Exam Additional comments: L ear: erythematous and edematous external auditory meatus with erythematous TM. no drainage noted. - Neck Exam Neck Exam: Lymphadenopathy Additional comments: L cervical LAD - Respiratory Exam Respiratory Exam: Clear to Ausculation Bilateral, NORMAL BREATHING PATTERN. absent: Rales, Rhonchi, Wheezes - Cardiovascular Exam Cardiovascular Exam: REGULAR RHYTHM, +S1, +S2. absent: Gallop, Rubs, Murmur - GI/Abdominal Exam GI & Abdominal Exam: Soft, Normal Bowel Sounds. absent: Distended, Tenderness - Extremities Exam Extremities Exam: Normal Inspection - Back Exam Back Exam: NORMAL INSPECTION - Neurological Exam Neurological Exam: Alert, Awake, Oriented x3 - Psychiatric Exam Psychiatric exam: Normal Affect, Normal Mood - Skin Skin Exam: Erythema, Warm Assessment and Plan - Assessment and Plan (Free Text) Assessment: 28 year old female who presents for left ear purulent drainage, consistent with otitis media/mastoiditis. Rympanostomy with Dr. Corley 04/05/18. Plan: Otitis media/Mastoiditis s/p Tympanostomy 04/05/[address] Vigil consulted, help appreciated Blood cultures, urine culture pending Zosyn 3.375g IV Q[address] Corley consulted, help appreciated tympanostomy with ENT Dr. Corley 04/05/18 CT Internal auditory canal: moderate destructive changes at left mastoid air cell complex mid and inferior levels. Near complete opacification of left middle ear cavity without bony destructive changes. Otomastoiditis. Decadron 10mg IVx1 given afebrile, no leukocytosis EKG: NSR @77bpm NS IV fluids @ 100cc/hr IV Abnormal UA UA 1+ blood, 1+ ketones, neg nitrates, neg LEs UDS negative f/u UCx A1c wnl Prophylaxis SCDs Heparin held for surgery tomorrow Case discussed with Dr. Butler
[2018-04-05] MEDS ORDERED: Ofloxacin 0.3% Ophth Soln ONE (10:03)
[2018-04-05] MEDS ORDERED: HYDROmorphone 0.5 mg/0.5 ml ISec IVP PRN (11:20)
--- NOTE | 2018-04-05 13:45 | OP ---
PROCEDURE DATE: 04/05/2018 PREOPERATIVE DIAGNOSIS: Left acute otitis media. POSTOPERATIVE DIAGNOSIS: Left acute otitis media. PROCEDURE: Left myringotomy tubes. SIGNIFICANT FINDINGS: Fluid noted behind left TM. DESCRIPTION OF PROCEDURE: The patient was brought into the room and placed in the supine position. Anesthesia was initiated through facemask. The head was turned. The left ear was brought into view using operative microscope and ear speculum. A radial incision was made in the anterior-inferior quadrant of the ear drum. Fluid was noted behind the TM and suctioned out and sent for culture. Tube was placed. Floxin was placed. The patient was taken off anesthesia and taken to the recovery room in a stable manner. Oliverio Corley MD
--- NOTE | 2018-04-05 15:43 | CP.PCM.DIS ---
Provider - Provider Date of Admission: 04/04/18 15:58 Attending physician: Sue Butler MD Consults: 04/04/18 16:57 Physician Consult Routine Comment: Consulting Provider: Artis Vigil Consulting Physician: Artis Vigil Reason for Consult: mastoiditis. 04/04/18 18:13 Physician Consult Routine Comment: Consulting Provider: Oliverio Corley Consulting Physician: Oliverio Croley Reason for Consult: otitis media/mastoiditis, tympanostomy Time Spent in preparation of Discharge (in minutes): 70 Diagnosis - Discharge Diagnosis (1) Mastoiditis Status: Acute (2) Otitis media of left ear Status: Acute Hospital Course - Lab Results Lab Results: Most Recent Lab Values WBC 10.1 K/uL (4.8-10.8) 04/05/18 08:23 RBC 3.90 Mil/uL (3.80-5.20) 04/05/18 08:23 Hgb 12.7 g/dL (11.0-16.0) 04/05/18 08:23 Hct 36.9 % (34.0-47.0) 04/05/18 08:23 MCV 94.6 fL (81.0-99.0) 04/05/18 08:23 MCH 32.6 pg (27.0-31.0) H 04/05/18 08:23 MCHC 34.5 g/dL (33.0-37.0) 04/05/18 08:23 RDW 13.0 % (11.5-14.5) 04/05/18 08:23 Plt Count 268 K/uL (130-400) 04/05/18 08:23 MPV 9.8 fL (7.2-11.7) 04/05/18 08:23 Neut % (Auto) 73.7 % (50.0-75.0) 04/05/18 08:23 Lymph % (Auto) 16.9 % (20.0-40.0) L 04/05/18 08:23 [place] % (Auto) 9.2 % (0.0-10.0) 04/05/18 08:23 Eos % (Auto) 0.1 % (0.0-4.0) 04/05/18 08:23 Baso % (Auto) 0.1 % (0.0-2.0) 04/05/18 08:23 Neut # (Auto) 7.5 K/uL (1.8-7.0) H 04/05/18 08:23 Lymph # (Auto) 1.7 K/uL (1.0-4.3) 04/05/18 08:23 [place] # (Auto) 0.9 K/uL (0.0-0.8) H 04/05/18 08:23 Eos # (Auto) 0.0 K/uL (0.0-0.7) 04/05/18 08:23 Baso # (Auto) 0.0 K/uL (0.0-0.2) 04/05/18 08:23 PT 13.4 SECONDS (9.7-12.2) H 04/04/18 19:48 INR 1.2 04/04/18 19:48 APTT 28 SECONDS (21-34) 04/04/18 19:48 Sodium 140 mmol/L (132-148) 04/05/18 08:23 Potassium 3.6 mmol/L (3.6-5.2) 04/05/18 08:23 Chloride 106 mmol/L (98-107) 04/05/18 08:23 Carbon Dioxide 27 mmol/L (22-30) 04/05/18 08:23 Anion Gap 11 (10-20) 04/05/18 08:23 BUN 7 mg/dL (7-17) 04/05/18 08:23 Creatinine 0.6 mg/dL (0.7-1.2) L 04/05/18 08:23 Est GFR ( Amer) > 60 04/05/18 08:23 Est GFR (Non-Af Amer) > 60 04/05/18 08:23 POC Glucose (mg/dL) 99 mg/dL (65-110) 04/04/18 17:39 Random Glucose 100 mg/dL (65-105) 04/05/18 08:23 Hemoglobin A1c 4.8 % (4.2-6.5) 04/04/18 19:48 Calcium 8.6 mg/dl (8.6-10.4) 04/05/18 08:23 Phosphorus 3.5 mg/dL (2.5-4.5) 04/05/18 08:23 Magnesium 2.1 mg/dL (1.6-2.3) 04/05/18 08:23 Total Bilirubin 0.6 mg/dL (0.2-1.3) 04/05/18 08:23 AST 45 U/L (14-36) H 04/05/18 08:23 ALT 45 U/L (9-52) 04/05/18 08:23 Alkaline Phosphatase 63 U/L (38-126) 04/05/18 08:23 Total Protein 7.0 g/dL (6.3-8.3) 04/05/18 08:23 Albumin 3.9 g/dL (3.5-5.0) 04/05/18 08:23 Globulin 3.1 gm/dL (2.2-3.9) 04/05/18 08:23 Albumin/Globulin Ratio 1.3 (1.0-2.1) 04/05/18 08:23 Urine Color Melina (YELLOW) 04/04/18 13:59 Urine Clarity Hazy (Clear) 04/04/18 13:59 Urine pH 5.0 (5.0-8.0) 04/04/18 13:59 Ur Specific [place] 1.030 (1.003-1.030) 04/04/18 13:59 Urine Protein 1+ mg/dL (NEGATIVE) H 04/04/18 13:59 Urine Glucose (UA) Normal mg/dL (Normal) 04/04/18 13:59 Urine Ketones 1+ mg/dL (NEGATIVE) H 04/04/18 13:59 Urine Blood 1+ (NEGATIVE) H 04/04/18 13:59 Urine Nitrate Negative (NEGATIVE) 04/04/18 13:59 Urine Bilirubin Negative (NEGATIVE) 04/04/18 13:59 Urine Urobilinogen 2.0 mg/dL (0.2-1.0) H 04/04/18 13:59 Ur Leukocyte Esterase Neg [place]/uL (Negative) 04/04/18 13:59 Urine WBC (Auto) 12 /hpf (0-5) H 04/04/18 13:59 Urine RBC (Auto) 7 /hpf (0-3) H 04/04/18 13:59 Ur Squamous Epith Cells 6 /hpf (0-5) H 04/04/18 13:59 Urine Bacteria Occ (<OCC) H 04/04/18 13:59 Urine HCG, Qual Negative (NEGATIVE) 04/04/18 20:48 Urine Opiates Screen Negative (NEGATIVE) 04/04/18 20:48 Urine Methadone Screen Negative (NEGATIVE) 04/04/18 20:48 Ur Barbiturates Screen Negative (NEGATIVE) 04/04/18 20:48 Ur Phencyclidine Scrn Negative (NEGATIVE) 04/04/18 20:48 Ur Amphetamines Screen Negative (NEGATIVE) 04/04/18 20:48 U Benzodiazepines Scrn Negative (NEGATIVE) 04/04/18 20:48 U Oth Cocaine Metabols Negative (NEGATIVE) 04/04/18 20:48 U Cannabinoids Screen Negative (NEGATIVE) 04/04/18 20:48 HIV 1&2 Antibody Screen Negative (NEGATIVE) 04/04/18 19:48 - Hospital Course Hospital Course: Upon Admission: Patient is a 28 year old female who presents for 3 to 4 day history of left ear pain with yellow, bloody purulent drainage with subjective fevers, hearing loss and buzzing in her left ear. She states that for the past 3 to 4 days, she has pain when she chews and bites down and has only been drinking liquids. She has not had any food in 3 days. She states she felt nauseated when she tried to eatand 3 episodes of nonbloody nonbilious vomiting 3 days ago, with no episodes since. Patient was seen in the ED for similar complaints yesterday and was discharged on Amoxicillin. CT head from yesterday 04/03/18 revealed no intracranial pathology, fluid in left mastoid air cells. She was seen by ENT Dr. Corley today who sent her in for tympanostomy. She denies headache, dizziness, blurry vision, chest pain, shortness of breath, abdominal pain, diarrhea, constipation, dysuria, leg swelling or leg pain. Pt was admitted for mastoiditis. Hospital Course: Diagonoses: 1. Acute otitis externa 2. Mastoiditis. CT of Internal auditory canal showed moderate destructive changes at left mastoid air cell complex mid and inferior levels. Near complete opacification of left middle ear cavity without bony destructive changes. Otomastoiditis. ENT was consulted and planned for tympanoplasty for the following day. ID was consulted and recommended IV zosyn. Pt was afebrile and without leukocytosis the following day. ENT performed a tympanoplasty. Pt tolerated procedure well. Pt was deemed stable for discharge to home with instructions to follow up with ENT. Upon Discharge: Pt was deemed stable for discharge to home with instructions to follow up with Dr. Corley in 1 week. She was given prescriptions for ciprodex drops to the L ear for 7 days and Bactrim DS PO for 7 days. Pt understood instructions and agreed. Discharge Exam - Head Exam Head Exam: ATRAUMATIC, NORMOCEPHALIC - Eye Exam Eye Exam: EOMI, PERRL Pupil Exam: NORMAL ACCOMODATION - ENT Exam Additional comments: marked decrease in erythema and edema of L external auditory meatus, L side of neck and face. - Respiratory Exam Respiratory Exam: Clear to PA & Lateral, NORMAL BREATHING PATTERN. absent: Wheezes - Cardiovascular Exam Cardiovascular Exam: REGULAR RHYTHM, +S1, +S2. absent: Gallop, Rubs, Systolic Murmur - GI/Abdominal Exam GI & Abdominal Exam: Normal Bowel Sounds, Soft. absent: Distended, Tenderness - Extremities Exam Extremities exam: normal inspection - Neurological Exam Neurological exam: Alert, CN II-XII Intact, Oriented x3 - Psychiatric Exam Psychiatric exam: Normal Affect, Normal Mood - Skin Skin Exam: Normal Color Discharge Plan - Discharge Medications Prescriptions: Ciprofloxacin/Dexamethasone [Ciprodex Otic] 4 drop BID 7 Days #1 bottle Ibuprofen [Motrin Tab] 600 mg PO TID #15 tab Sulfamethoxazole/Trimethoprim [Bactrim DS 800 mg-160 mg] 1 tab PO BID #14 tab - Follow Up Plan Condition: GOOD Disposition: HOME/ ROUTINE Additional Instructions: Please follow up with Dr. Corley, animal trainer in 1 week. Please call to make an appointment. Please take your medications as prescribed. If symptoms worsen please return to the ED. Take care and be well. Por favor artis un seguimiento con el Dr. Corley, otorrinolaringlogo en 1 semana. Llame al para hacer andrews brayan. Por favor, tome miguel medicamentos segn lo prescrito. Si los sntomas empeoran, por favor regrese al servicio de urgencias. Cudate y sintete humphrey. Referrals: Oliverio Corley MD [Staff Provider] -
[2018-04-05 16:59] VITALS: BP 114/78; PULSE 97; RESP 20; TEMP 97.7; O2SAT 65
--- NOTE | 2018-04-08 22:28 | CARD ---
APPROVED REPORT Date of service: 04/04/2018 EKG Measurement Heart [id number] <Conclusion> Normal sinus rhythm Normal ECG
== END 2018-04-05 16:46 | disposition home or self-care (01) ==
LOC: C.ER 11:38 → C.3T 15:58
PROVIDERS: ADMIT Internal Medicine; ATTEND Internal Medicine
DX: H70.002 Acute mastoiditis without complications, left ear (principal); H66.92 Otitis media, unspecified, left ear; H72.92 Unspecified perforation of tympanic membrane, left ear
CPT/HCPCS: 36415; 69436; 70480; 80053; 80324; 80345; 80346; 80349; 80353; 80358; 80361; 81001; 81025; 82948; 83036; 83735; 83992; 84100; 84703; 85025; 85610; 85730; 86703; 87040; 87070; 87086; 93005; 96365; 96375; 96376; 99284; G0378; J1100; J1170; J2543; J7030

== ENCOUNTER 2018-06-24 10:56 | Outpatient (CLI) | payer OTHER | END 2018-06-24 10:57 | disposition home or self-care (01) | LOC: C.DIABED 10:56 | DX: E66.9 Obesity, unspecified (principal) ==